=== PATIENT | male | born 1995 | race Caucasian/White ===

== ENCOUNTER 2020-03-03 02:30 | Emergency (ER) | payer SELFPAY ==
[~2020-03-03] VITALS: Ht 182.9 cm; Wt 91.0 kg
[2020-03-03] MEDS ORDERED: ONDANSETRON HCL 4MG/2ML INJ IV STA (03:02)
[2020-03-03 04:03] LABS: BASOPHILS % 0.1 % (0.0-2.0); EOSINOPHILS % 0.2 % (0.0-5.0); HEMATOCRIT. 49.4 % (42.0-52.0); HEMOGLOBIN. 17.3 g/dL (14.0-18.0); LYMPHOCYTES % 17.4 % (20.0-50.0); MEAN CORPUSCULAR HEMOGLOBIN 30.6 pg (28.0-32.0); MEAN CORPUSCULAR VOLUME 87.4 fL (80.0-94.0); MONOCYTES % 4.5 % (2.0-8.0); NEUTROPHILS % 77.8 % (40.0-76.0); PLATELET 243 x1000/uL (130-400); RED BLOOD CELL COUNT 5.65 mill/uL (4.7-6.1); RED CELL DISTRIBUTION WIDTH 12.9 % (11.6-14.6)
[2020-03-03 04:06] LABS: CHLORIDE 106 mEq/L (98-107)
[2020-03-03 04:12] LABS: ETHANOL BLOOD 233 mg/dL
[2020-03-03 05:30] VITALS: BP 120/65
== END 2020-03-03 06:51 | disposition home or self-care (01) ==
LOC: ER 02:30
DX: F10.129 Alcohol abuse with intoxication, unspecified (principal); Y90.7 Blood alcohol level of 200-239 mg/100 ml; S80.212A Abrasion, left knee, initial encounter; S80.02XA Contusion of left knee, initial encounter; V43.52XA Car driver injured in collision with other type car in traffic accident, initial encounter; Y93.9 Activity, unspecified; Y92.410 Unspecified street and highway as the place of occurrence of the external cause
CPT/HCPCS: 36415; 71045; 73562; 80053; 80320; 84484; 85025; 93005; 99285; G0480